=== PATIENT | male | born 1970 ===

== ENCOUNTER 2016-12-24 14:50 | Emergency (ER) | payer OTHER ==
[2016-12-24 14:57] VITALS: BP 131/74; PULSE 70; RESP 16; TEMP 99.2; O2SAT 98
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
== END 2016-12-24 16:21 | disposition home or self-care (01) ==
LOC: C.ER 14:50
DX: S60.222A Contusion of left hand, initial encounter (principal); Y04.0XXA Assault by unarmed brawl or fight, initial encounter; Y92.9 Unspecified place or not applicable